=== PATIENT | male | born 1950 | race Caucasian/White ===

== ENCOUNTER 2017-05-23 16:22 | Inpatient (IN) ==
--- NOTE | 2017-05-23 16:45 | Emergency Department Note ---
Disposition Clinical Impression: Pancreatitis Qualifiers: Chronicity: acute Pancreatitis type: unspecified pancreatitis type Acute pancreatitis complication: unspecified Qualified Code(s): K85.90 - Acute pancreatitis without necrosis or infection, unspecified Disposition: Admitted As Inpatient Condition: Undetermined Referrals: NO,PCP [Primary Care Provider] - Forms: Work/School Release, ED Satisfaction Letter Time of Disposition: 18:13 Abdominal Pain HPI - General Chief Complaint: ED Abdominal Pain Stated Complaint: abdominal pain Time Seen by Provider: 05/23/17 16:25 Source: patient Mode of arrival: EMS Limitations: no limitations Nursing Notes Reviewed: Yes Vital Signs Reviewed: Yes - History of Present Illness HPI Narrative: 66-year-old male with history of noncompliance with hypertension, arrives [facility] emergency Department as a transfer from the [facility] with concern for pancreatitis. The patient states that this morning he began complaining of epigastric and periumbilical pain. The patient has associated nausea. The patient states he went to the [facility] urgent care with complaint of the epigastric pain today. The patient had a workup in the [facility] urgent care including a CBC, CMP with lipase and amylase. Labs demonstrated a leukocytosis of 14.4. Transaminases were within normal limits. Bilirubin was within normal limits. Lipase was greater than 3000. The patient admits to a moderate amount of nausea as well. He is otherwise resting comfortably on the cot upon transfer to [facility] for further workup. GFR is greater than 60 on labs from [facility]. Pt Subjective Complaint: abdominal pain Consistency: constant Location: periumbilical Pain Severity: severe Pain Scale: 9 Quality: stabbing Radiation: LUQ Migration to: no migration Improves with: nothing Worsens with: nothing Context: history of similar episodes Associated symptoms: Reports: nausea - Related Data Previous Rx's Medication Instructions Recorded diazePAM [Valium] 5 mg PO BID PRN 7 Days 11/30/16 Allergies Allergy/AdvReac Type Severity Reaction Status Date / Time morphine Allergy Rash Verified 11/30/16 14:27 propoxyphene [From Darvon] Allergy Rash Verified 11/30/16 14:27 All systems ED: reviewed and negative except as stated. Constitutional: Denies: fever, chills, weakness, weight change Cardiovascular: Denies: chest pain, palpitations, dyspnea on exertion, edema, syncope Respiratory: Denies: cough, dyspnea, wheezes, hemoptysis, stridor Gastrointestinal: Reports: abdominal pain, nausea. Denies: vomiting, diarrhea, constipation, hematemesis, melena, hematochezia Genitourinary: Denies: urgency, dysuria, frequency, hematuria Musculoskeletal: Denies: back pain, neck pain, arthralgia, myalgia Integumentary: Denies: rash, abrasion, lesions Neurological: Denies: headache, weakness, numbness, paresthesias, confusion, abnormal gait, vertigo Abdominal Pain PMH - Past Medical History Medical history: Reports: hypertension, other (Questionable history of pancreatitis) Male Surgical History: Reports: other Psychiatric history: Reports: PTSD - Social History Smoking status: Former smoker Alcohol use: Reports: none Drug use: Reports: none Physical Exam - General Limitations: no limitations General appearance: alert, in no apparent distress - Head Head exam: atraumatic, normocephalic, normal inspection - Neck Neck exam: Present: normal inspection, full ROM, trachea midline - Chest Chest inspection: Present: normal inspection, symmetric chest wall rise - Respiratory Respiratory exam: Present: normal lung sounds bilaterally - Cardiovascular Cardiovascular exam: Present: regular rate, normal rhythm, normal heart sounds - Abdominal Exam Abdominal exam: Present: soft, tenderness (Periumbilical and LUQ pain). Absent : distention, guarding, rebound, rigidity, Flores's sign, Rovsing's sign, tenderness at McBurney's Point, hernia - Extremities Exam Extremities exam: Present: normal inspection, full ROM. Absent: tenderness, pedal edema - Neurological Exam Neurological exam: Present: alert, oriented X3 Course Vital Signs Temperature 98.6 F 05/23/17 16:23 Pulse Rate 104 05/23/17 16:23 Respiratory Rate 16 05/23/17 16:23 Blood Pressure 156/97 05/23/17 16:23 O2 Sat by Pulse Oximetry 96 05/23/17 16:23 Temperature 98.6 F 05/23/17 16:23 Pulse Rate 104 05/23/17 16:23 Respiratory Rate 16 05/23/17 16:23 Blood Pressure 156/97 05/23/17 16:23 O2 Sat by Pulse Oximetry 96 05/23/17 16:23 Oxygen Delivery Oxygen Delivery Room Air Abdominal Pain - MDM Narrative Medical decision making narrative: Workup at the [facility] as well as the emergency department here today demonstrates acute pancreatitis. The patient has a lipase of greater than 3000. The patient has peritonitis noted on CT scan without pseudocyst. The patient is resting comfortably with IV fluids, IV Zofran, IV Dilaudid. We will admit the patient to the hospital for further workup. There is a concern as the patient states that he has had pancreatic Marvin the past but is unsure if they perform any workup. The patient denies any alcohol abuse and there is concern for possible stone or biliary associated pancreatitis. The patient denies any fevers or chills. He is resting comfortably on the cot at this time. The patient was accepted to the hospital service by MAITE Barrow. - Lab Data Lab results reviewed: Yes I reviewed the patient's lab results. Lab Results 05/23/17 Range/Units 16:38 Urine Color Yellow (Yellow) Urine Clarity Clear (Clear) Urine pH 6.0 (5.0-8.0) pH Units Ur Specific [place] 1.013 (1.010-1.025) Urine Protein 30 H (Neg-Trace) mg/dL Urine Glucose (UA) Normal (Normal) mg/dL Urine Ketones Negative (Negative) mg/dL Urine Blood Negative (Negative) Urine Nitrite Negative (Negative) Urine Bilirubin Negative (Negative) Urine Urobilinogen Normal (Normal) mg/dL Ur Leukocyte Esterase Negative (Negative) Urine Microscopic RBC 0-3 (0-3) per hpf Urine Microscopic WBC 0-3 (0-3) per hpf Ur Squamous Epith Cells Few (None-Few) per lpf Urine Bacteria None Seen (None-Few) per hpf Hyaline Casts None Seen (None-Few) per lpf Ur Culture Indicated? NO (NO) - Radiology Data Radiology results reviewed: Yes I reviewed the patient's radiology results. Abdomen/Pelvis CT 05/23/17 16:42 IMPRESSION: Mild acute pancreatitis without focal pseudocyst or abscess identified D/ / Morgan Rhodes MD / Morgan Rhodes MD Interpreting Provider: Morgan Rhodes MD Attestation Statement - Attestation Attestation: I personally interviewed and examined this patient and my medical decision- making was reviewed with the ED Resident Physician, Dr. Marroquin I agree with the documented findings, disposition and treatment plan as described except to the extent set forth below. Patient is a 66-year-old white male with a history of prior pancreatitis who presents to the emergency department sent by the [facility] with recurrent pancreatitis. Patient has been having complaints of epigastric pain that radiates through to his back associated with some nausea and was evaluated at the [facility] earlier today. He was sent here with an elevated lipase of 3000 mild elevation in his white count and sent for evaluation of this. Patient is hemodynamically stable on arrival and in no acute distress no alteration of consciousness. Patient denies any history of alcohol use or abuse , no history of gallbladder disease, and no history of elevated triglycerides. I agree with patient's physical exam findings as documented. We did not repeat patient's labs as the [facility] had just done labs prior to arrival and we will transfer those 2 the admitting physician. We did obtain CT imaging to rule out pseudocyst or abscess or any other abdominal pathology. Patient's CT shows mild acute pancreatitis but no pseudocyst or abscess. Remainder of CT scan was unremarkable. We initiated IV fluids, pain meds and antiemetics and will admit the patient for acute pancreatitis. Patient remains hemodynamically stable at this time.
[2017-05-23 16:47] LABS: Bilirubin,Urine Negative (Negative); Blood,Urine Negative (Negative); Clarity,Urine Clear (Clear); Color,Urine Yellow (Yellow); Glucose,Urine (UA) Normal (Normal); Ketones,Urine Negative (Negative); Leukocyte Esterase,Urine Negative (Negative); Nitrite,Urine Negative (Negative); Protein,Urine 30 mg/dL (Neg-Trace); Specific Gravity,Urine 1.013 (1.010-1.025); Urobilinogen,Urine Normal (Normal)
[2017-05-23 16:48] LABS: Bacteria,Urine None Seen per hpf (None-Few); Hyaline Casts,Urine None Seen per lpf (None-Few); RBC,Urine 0-3 per hpf (0-3); Squamous Epithelial Cell,Urine Few per lpf (None-Few); WBC,Urine 0-3 per hpf (0-3)
[2017-05-23] MEDS ORDERED: 0.9 % Sodium Chloride 1,000 ML IVC ONE (17:51)
[2017-05-23] MEDS ORDERED: *HR* HYDROmorphone (PF) 1 MG/ML SYRINGE IVP ONE (17:56)
[2017-05-23] MEDS ORDERED: Ondansetron 4 MG/2 ML VIAL IVP ONE (17:57)
[2017-05-23] MEDS ORDERED: 0.9 % Sodium Chloride 1,000 ML IVC SCH (18:00)
[2017-05-23] MEDS ORDERED: *HR* Promethazine 25 MG/ML VIAL IVP PRN (19:57)
[2017-05-23] MEDS ORDERED: Ondansetron 4 MG/2 ML VIAL IVP PRN (19:57)
[2017-05-23] MEDS ORDERED: Naloxone 0.4 MG/ML INJ IVP PRN (19:57)
--- NOTE | 2017-05-23 20:19 | Internal Med History&Physical ---
Date of Encounter: 05/23/17 Time of Encounter: 20:06 Assessment and Plan (1) Pancreatitis Current visit: Yes Status: Acute Patient reports severe abdominal pain, nausea and vomiting starting when he woke up this morning. Lipase > 3,000, Amylase < 1,300, WBC 14.4. CT abd/ pelvis shows mild acute pancreatitis without focal pseudocyst or abscess. Patient reports he quit drinking alcohol 20 years ago. 1L fluid bolus given in ED. Continue with 0.9NS at 150mL/hr NPO except ice chips dilaudid IVP PRN for abdominal pain. zofran and phenergan PRN for nausea and vomiting. Consult to GI to consider MRCP. Qualifiers: Chronicity: acute Pancreatitis type: unspecified pancreatitis type Acute pancreatitis complication: unspecified Qualified Code(s): K85.90 - Acute pancreatitis without necrosis or infection, unspecified (2) Nausea & vomiting Current visit: Yes Status: Acute Secondary to pancreatitis. NPO except ice chips zofran and phenergan PRN for nausea. Qualifiers: Vomiting type: bilious vomiting Qualified Code(s): R11.14 - Bilious vomiting (3) Abdominal pain Current visit: Yes Status: Acute secondary to pancreatitis Dilaudid PRN for pain Narcan PRN for respiratory depression Qualifiers: Abdominal location: generalized Qualified Code(s): R10.84 - Generalized abdominal pain (4) MAVERICK (acute kidney injury) Current visit: Yes Status: Suspected Patient with creatinine of 1.24, unknown baseline. Patient denies any history of kidney problems. Suspect acute secondary to vomiting and poor oral intake. Hydrating with fluids 0.9NS at 150mL/hr and will recheck chemistry in the morning. (5) DVT prophylaxis Current visit: Yes Status: Acute anti-embolic stockings heparin 5,000u SQ TID Internal Medicine - H&P: HPI Chief complaint: abdominal pain Admitted From: Emergency Dept Plans for Post Hospital Care: Home History of present illness: Mr. Delgadillo is a 66 year old male with hypertension, peripheral vascular disease acid reflux who presented to the [place] urgent care today with complaints of abdominal pain and nausea and vomiting, he was found to have elevated lipase and amylase and was transferred to [place] [facility] for acute pancreatitis. Patient reports that when he woke up this morning around 7 AM he had severe abdominal pain that was sharp, and unrelieved. He also had nausea and vomiting, nonbloody nonbilious. He denies any lightheadedness, headache, chest pain, palpitations, shortness of breath, diarrhea, fever, chills or sweats. Evaluation at the [place] included lab work that revealed elevated white blood cell count of 14.4, elevated lipase of greater than 3000, elevated amylase of greater than 1300, and elevated creatinine of 1.24. We do not have patient's baseline creatinine so unclear whether this is an AKA versus chronic. CT of the abdomen and pelvis obtained here showed mild acute pancreatitis without pseudocyst or abscess. Patient reports he quit drinking alcohol 20 years ago. On exam, patient alert and oriented, in no acute distress. Heart is regular rate and rhythm, lungs are clear bilaterally to auscultation. Abdomen is diffusely tender to palpation. Past Med Surg Social Fam HX - Past Medical History Medical history: GERD, hypertension, peripheral artery disease, other ( Questionable history of pancreatitis) Psychiatric history: PTSD - Past Surgical History Surgical History: LE stent(s), LE vascular intervention - Social History Smoking Status: Former smoker (50 pack year history) Smokeless Tobacco Status: No Alcohol use: none Drug use: none - Family History Mother Living Status: Age at : 98 Cause of : [place] Father Living Status: Age at : 56 Cause of : lung cancer Brother Living Status: Cause of : Colon cancer Internal Medicine - H&P: Meds Atorvastatin [Lipitor] 40 mg PO HS 05/23/17 [History] Clopidogrel [Plavix] 75 mg PO DAILY 05/23/17 [History] Gabapentin [Neurontin] 200 mg PO TID 05/23/17 [History] Omeprazole [PriLOSEC] 20 mg PO DAILY 05/23/17 [History] Sildenafil Citrate [Viagra] 50 mg PO DAILY PRN 05/23/17 [History] Allergies morphine Allergy (Verified 11/30/16 14:27) Rash propoxyphene [From Darvon] Allergy (Verified 11/30/16 14:27) Rash All Systems PM: A 10-system review of systems was performed and is negative for pertinent findings except as documented above in the HPI. - Constitutional Constitutional: no chills, no fever(s), no night sweats - EENT Eyes: no change in vision, no discharge, no pain, no photophobia Ears: no ear discharge, no ear pain, no tinnitus Nose, mouth and throat: no dysphagia, no nasal discharge, no neck pain, no sore throat - Cardiovascular Cardiovascular ROS IM: no chest pain, no diaphoresis, no dyspnea, no lightheadedness, no palpitations, no syncope - Respiratory Respiratory: no cough, no dyspnea, no wheezing, no excessive phlegm production - Gastrointestinal Gastrointestinal: abdominal pain, nausea, vomiting, no diarrhea, no hematemesis , no hematochezia, no melena - Musculoskeletal Musculoskeletal ROS IM: no numbness, no tingling - Integumentary Integumentary IM: no rash, no unusual bruising - Neurological Neurological ROS: no confusion, no convulsions, no focal weakness, no numbness, no tingling, no tremor(s) - Hematologic/Lymphatic Hematologic/Lymphatic: no easy bruising - Constitutional Vitals: Temp Pulse Resp BP Pulse Ox 98.6 F 88 16 130/91 95 05/23/17 16:23 05/23/17 18:40 05/23/17 18:54 05/23/17 18:54 05/23/17 18:40 General appearance: Present: A&O X 3, pleasant, no acute distress - Head Head exam: Present: atraumatic, normocephalic - Eye Eye exam: Present: PERRL, conjuntiva pink, sclera anicteric Pupils: Present: PERRL - Neck Neck exam general surgery: Present: supple, trachea midline. Absent: lymphadenopathy - Respiratory Respiratory exam: Present: CTAB. Absent: accessory muscle use, rales, rhonchi, wheezes - Cardiovascular Cardiovascular exam: Present: RRR, +S1, +S2. Absent: diastolic murmur, gallop, rubs, systolic murmur - GI/Abdominal GI/Abdominal exam: Present: normal bowel sounds, soft, tenderness, no peritoneal signs. Absent: distended - Extremities Exam Extremities exam: Present: warm, radial pulses palpable and symetrical. Absent : calf tenderness, cyanotic, pedal edema - Neurological Exam Neurological exam: Present: CN II-XII intact, oriented X3, no focal deficits. Absent: pronater drift, facial droop, speech deficit - Skin Skin exam: Present: dry, intact Internal Med - H&P Results - Labs Labs: Labs from [place]: Hgb 14.9 Hct 46.0 WBC 14.4 Plt 206 Na 141 K 4.3 Cl 104 CO2 27 BUN 11 Cr 1.24 Glu 119 AST 21 ALT 20 tbili 0.2 alk phos 129 lipase > 3,000 Amylase > 1,300 - Diagnostic Studies CT scan - abdomen Additional comments: Abdomen/Pelvis CT 05/23/17 16:42 IMPRESSION: Mild acute pancreatitis without focal pseudocyst or abscess identified D/ / Morgan Rhodes MD / Morgan Rhodes MD Interpreting Provider: Morgan Rhodes MD
[2017-05-23] MEDS: Pantoprazole 40 MG VIAL IVP SCH (21:39)
[2017-05-23] MEDS: 0.9 % Sodium Chloride 1,000 ML IVC SCH (21:39)
[2017-05-23] MEDS: *HR* HYDROmorphone (PF) 1 MG/ML SYRINGE IVP PRN (21:40)
[2017-05-23] MEDS: *HR* Heparin 5,000 UNIT/ML VIAL SQ SCH (23:43)
[2017-05-24] MEDS: *HR* HYDROmorphone (PF) 1 MG/ML SYRINGE IVP PRN ×4 (02:39→15:17)
[2017-05-24] MEDS ORDERED: Acetaminophen 325 MG TABLET PO ONE (03:29)
[2017-05-24] MEDS: 0.9 % Sodium Chloride 1,000 ML IVC SCH ×4 (04:03→19:20)
[2017-05-24 06:36] LABS: Basophils % 0.2 %; Eosinophils # 0.1 K/mcL (0.0-0.6); Eosinophils % 0.5 %; Hematocrit 38.4 % (37.5-50.1); Hemoglobin 12.5 g/dL (12.9-16.9); Immature Granulocytes % 0.3 % (0-4); Lymphocytes % 21.1 %; Mean Corpuscular HGB Conc 32.6 g/dL (31.6-35.5); Mean Corpuscular Hemoglobin 28.2 pg (28.0-33.3); Mean Corpuscular Volume 86.7 fL (83.0-100.0); Mean Platelet Volume 11.4 fL (9.4-12.4); Monocytes # 0.8 K/mcL (0.0-1.3); Monocytes % 8.7 %; Neutrophils # 6.4 K/mcL (1.6-8.9); Platelet Count 206 K/mcL (140-400); Red Blood Count 4.43 M/mcL (4.19-5.50); Red Cell Distribution Width 14.2 % (11.5-14.5); Segmented Neutrophils % 69.2 %
[2017-05-24 06:48] LABS: BUN/Creatinine Ratio 10 (6-26); Blood Urea Nitrogen 9 mg/dL (8-26); Calcium 8.5 mg/dL (8.6-10.8); Carbon Dioxide 25 mEq/L (19-29); Chloride 107 mEq/L (98-109); Glucose 112 mg/dL (70-99); Osmolality,Calculated 287 (280-300); Potassium 4.1 mEq/L (3.5-4.5); Sodium 139 mEq/L (136-145); eGFR For African Americans > 60 (> 60); eGFR For Non-African Americans > 60 (> 60)
[2017-05-24] MEDS: *HR* Heparin 5,000 UNIT/ML VIAL SQ SCH ×2 (08:07→15:58)
[2017-05-24] MEDS: Pantoprazole 40 MG VIAL IVP SCH (08:07)
[2017-05-24 08:42] LABS: Amylase 2853 Units/L (25-125); Lipase 957 Units/L (8-78)
[2017-05-24] MEDS ORDERED: Pantoprazole 40 MG VIAL IVP SCH (09:00)
--- NOTE | 2017-05-24 09:12 | Internal Med Progress Note ---
Date of Encounter: 05/24/17 Time of Encounter: 09:10 - Assessment and plan (1) Pancreatitis Current Visit: Yes Status: Acute Assessment and plan: Recurrent pancreatitis, uncertain etiology. Last episode about 8 months back, hospitalized at a different facility. No alcohol use. Continue supportive care with bowel rest, IV hydration, pain control with when necessary IV morphine and when necessary antiemetics. We will obtain right upper quadrant ultrasound and MRCP to evaluate biliary etiology. GI consult. Qualifiers: Chronicity: acute Pancreatitis type: unspecified pancreatitis type Acute pancreatitis complication: unspecified Qualified Code(s): K85.90 - Acute pancreatitis without necrosis or infection, unspecified (2) GERD (gastroesophageal reflux disease) Current Visit: Yes Status: Chronic Assessment and plan: Continue PPI. Qualifiers: Esophagitis presence: esophagitis presence not specified Qualified Code(s) : K21.9 - Gastro-esophageal reflux disease without esophagitis (3) PVD (peripheral vascular disease) Current Visit: Yes Status: Chronic Assessment and plan: Noted to be on aspirin and Plavix. Will hold for now for possible need for GI procedures. - Subjective Interval history: Reports improvement in nausea and abdominal pain with medications; no fever/ chills; - Constitutional Vitals: Temp Pulse Resp BP Pulse Ox 98.1 F 79 16 136/79 96 05/24/17 08:01 05/24/17 08:01 05/24/17 08:01 05/24/17 08:01 05/24/17 08:01 General appearance: Present: A&O X 3, answers questions appropriately - Respiratory Respiratory exam: Present: CTAB. Absent: accessory muscle use, rales, rhonchi, wheezes - Cardiovascular Cardiovascular exam: Present: RRR, +S1, +S2. Absent: diastolic murmur, gallop, rubs, systolic murmur - GI/Abdominal GI/Abdominal exam: Present: normal bowel sounds, soft (epigastric and RUQ tenderness), no peritoneal signs. Absent: distended, tenderness - Extremities Exam Extremities exam: Present: full ROM, warm, radial pulses palpable and symetrical. Absent: calf tenderness, cyanotic, pedal edema - Neurological Exam Neurological exam: Present: CN II-XII intact, oriented X3, no focal deficits. Absent: pronater drift, facial droop, speech deficit Internal Medicine: Result - Labs CBC & Chem 7: 05/24/17 06:14 05/24/17 06:14 Labs: Short CBC 05/24/17 Range/Units 06:14 WBC 9.2 (4.3-11.1) K/mcL Hgb 12.5 L (12.9-16.9) g/dL Hct 38.4 (37.5-50.1) % Plt Count 206 (140-400) K/mcL Neutrophils # 6.4 (1.6-8.9) K/mcL BMP 05/24/17 06:14 Sodium 139 Potassium 4.1 Chloride 107 Carbon Dioxide 25 BUN 9 Creatinine 0.94 Glucose 112 H Calcium 8.5 L Consult Discharge Plan - Plan Referrals: [facility] [Outside]
[2017-05-24 10:34] LABS: Ionized Calcium 1.14 mmol/L (1.15-1.35)
[2017-05-24 11:25] LABS: Albumin 3.2 g/dL (3.5-5.0); Albumin/Globulin Ratio 1.1 (1.1-2.2); Bilirubin,Direct 0.2 mg/dL (0.0-0.5); Bilirubin,Indirect 0.3 mg/dL (0.0-1.2); Bilirubin,Total 0.5 mg/dL (0.2-1.2); Globulin 2.9 g/dL (2.4-3.5); Total Protein 6.1 g/dL (6.0-8.3)
[2017-05-24] MEDS ORDERED: 0.9 % Sodium Chloride 1,000 ML IVC SCH (14:01)
--- NOTE | 2017-05-24 14:11 | Gastroenterology Consult Note ---
<Shakir Wilson Roberto - Last Filed: 05/24/17 14:09> Date of Encounter: 05/24/17 Time of Encounter: 11:35 - Assessment and plan (1) Pancreatitis Current Visit: Yes Status: Acute Assessment and plan: Lipase at [facility] was greater than 3000, lipase on admission here 957. LFTs are normal. CT A/P showed mild acute pancreatitis without pseudocyst or abscess. Gallbladder ultrasound with questionable echogenic focus along the gallbladder wall, which could represent unenhanced stone or perhaps a small polyp. Increase IV fluids to 200 ml/hr. Continue pain control and antiemetics. Keep NPO for now. Check RADHA, IgG 4, ionized calcium, and triglycerides. Qualifiers: Chronicity: acute Pancreatitis type: unspecified pancreatitis type Acute pancreatitis complication: unspecified Qualified Code(s): K85.90 - Acute pancreatitis without necrosis or infection, unspecified (2) Nausea & vomiting Current Visit: Yes Status: Acute Assessment and plan: Secondary to pancreatitis. Continue antiemetics. Qualifiers: Vomiting type: bilious vomiting Qualified Code(s): R11.14 - Bilious vomiting (3) Abdominal pain Current Visit: Yes Status: Acute Assessment and plan: Secondary to pancreatitis. Continue pain control. Qualifiers: Abdominal location: generalized Qualified Code(s): R10.84 - Generalized abdominal pain - Time Spent With Patient Total time spent is greater than 50% in coordination of care (as documented) at patient's floor/unit and/or counseling patient: GI History of Present Illness - Data of Consult Patient: new to practice Consult date: 05/24/17 Requesting Physician: Liz Diggs MD - Consult Narrative Reason for consult: Pancreatitis History of present illness: Mr. Delgadillo is a 66 year old male with PMHx of GERD, HTN, PAD, GERD who presented to the [facility] with c/o abdominal pain, nausea, and vomiting. He was found to have elevated amylase and lipase and was transferred to [place] for acute pancreatitis. He denies fever, chills, chest pain, shortness of breath , or diarrhea. Labs at the [facility] showed WBC 14.4, amylase greater than 1300. and lipase greater than 3000. CT A/P showed mild acute pancreatitis without pseudocyst or abscess. Patient reports he quit drinking alcohol 20 years ago. Procedures: None NSAIDs: None Anticoagulation: Plavix Past Med Surg Social Fam HX - Past Medical History Medical history: hypertension, other Psychiatric history: PTSD - Past Surgical History Surgical History: LE stent(s), LE vascular intervention - Social History Smoking Status: Former smoker Smokeless Tobacco Status: No Alcohol use: none Drug use: none - Family History Mother Living Status: Age at : 98 Cause of : [place] Father Living Status: Age at : 56 Cause of : lung cancer Brother Adopted: [place]: Karl arvizu Family Member Ethnicity: Non- Living Status: Still Living Cause of : Colon cancer Hx Family Cardiac Disorders: Yes (HTN) - Gastrointestinal Gastrointestinal: Present: as per HPI - Constitutional Constitutional: as per HPI - EENT Eyes: as per HPI Ears: Present: as per HPI Nose, mouth and throat: Present: as per HPI - Cardiovascular Cardiovascular ROS: Present: as per HPI - Respiratory Respiratory IM: Present: as per HPI - Genitourinary Genitourinary: Absent: change in color, Urinary frequency - Neurological ROS Neurological GI: Present: as per HPI - Hematologic/Lymphatic Hematologic/Lymphatic pediatric: Present: as per HPI - Musculoskeletal Musculoskeletal ROS GI: Present: as per HPI - Integumentary Integumentary GI: Present: as per HPI - Psychiatric ROS Psychiatric GI: Present: as per HPI - Endocrine Endocrine IM: Present: as per HPI - Constitutional Vitals: Temp Pulse Resp BP Pulse Ox 98.2 F 82 18 143/87 95 05/24/17 11:53 05/24/17 11:53 05/24/17 11:53 05/24/17 11:53 05/24/17 11:53 General appearance: Present: cooperative, A&O X 3, no acute distress, answers questions appropriately - Head Head exam: Present: atraumatic, normocephalic - Eye Eye exam: Present: normal appearance, sclera anicteric - ENT ENT exam: Present: mucous membranes dry - Neck Neck exam general surgery: Present: normal inspection, trachea midline - Respiratory Respiratory exam: Present: CTAB. Absent: rales, rhonchi - Cardiovascular Cardiovascular exam: Present: RRR, +S1, +S2 - GI/Abdominal GI/Abdominal exam: Present: soft, tenderness (RUQ and epigastric), no peritoneal signs. Absent: distended, firm, guarding - Rectal Rectal exam: Present: deferred - Extremities Exam Extremities exam: Present: warm - Neurological Exam Neurological exam: Present: no focal deficits - Psychiatric Psychiatric exam: Present: normal affect, normal mood - Skin Skin exam: Present: dry, intact, normal color, warm Results - Labs CBC & Chem 7: 05/24/17 06:14 05/24/17 06:14 Labs: Last Result Calcium 8.5 mg/dL (8.6-10.8) L 05/24/17 06:14 Triglycerides 150 mg/dL (< 150) H 05/24/17 10:00 Entire Visit Hgb 12.5 g/dL (12.9-16.9) L 05/24/17 06:14 Hct 38.4 % (37.5-50.1) 05/24/17 06:14 Total Bilirubin 0.5 mg/dL (0.2-1.2) 05/24/17 10:00 AST 13 Units/L (5-34) 05/24/17 10:00 ALT 7 Units/L (0-55) 05/24/17 10:00 Amylase 2853 Units/L (25-125) H 05/24/17 06:14 Lipase 957 Units/L (8-78) H 05/24/17 06:14 - Impressions Impressions Abdomen Ultrasound 05/24/17 10:30 IMPRESSION: 1. The pancreas was not well visualized. 2. Questionable echogenic focus along the gallbladder wall, which could represent unenhanced stone or perhaps a small polyp. D/ / Alfredito Cardoza MD / Alfredito Cardoza MD Interpreting Provider: Alfredito Cardoza MD Consult Discharge Plan - Plan Referrals: [facility] [Outside] - 06/06/17 9:00 am <Ferny Pastrana - Last Filed: 05/24/17 18:38> Date of Encounter: 05/24/17 Time of Encounter: 17:30 - Time Spent With Patient Total time spent is greater than 50% in coordination of care (as documented) at patient's floor/unit and/or counseling patient: GI History of Present Illness - Data of Consult Requesting Physician: Liz Diggs MD - Consult Narrative History of present illness: Mr. Delgadillo is a 66 year old male - Constitutional Vitals: Temp Pulse Resp BP Pulse Ox 98.7 F 97 16 156/93 94 05/24/17 15:10 05/24/17 15:10 05/24/17 15:10 05/24/17 15:10 05/24/17 15:10 Results - Labs CBC & Chem 7: 05/24/17 06:14 05/24/17 06:14 Labs: Last Result Calcium 8.5 mg/dL (8.6-10.8) L 05/24/17 06:14 Triglycerides 150 mg/dL (< 150) H 05/24/17 10:00 Entire Visit Hgb 12.5 g/dL (12.9-16.9) L 05/24/17 06:14 Hct 38.4 % (37.5-50.1) 05/24/17 06:14 Total Bilirubin 0.5 mg/dL (0.2-1.2) 05/24/17 10:00 AST 13 Units/L (5-34) 05/24/17 10:00 ALT 7 Units/L (0-55) 05/24/17 10:00 Amylase 2853 Units/L (25-125) H 05/24/17 06:14 Lipase 957 Units/L (8-78) H 05/24/17 06:14 - Impressions Impressions Abdomen Ultrasound 05/24/17 10:30 IMPRESSION: 1. The pancreas was not well visualized. 2. Questionable echogenic focus along the gallbladder wall, which could represent unenhanced stone or perhaps a small polyp. D/ / Alfredito Cardoza MD / Alfredito Cardoza MD Interpreting Provider: Alfredito Cardoza MD - Attending Attestation I examined this patient and my medical decision-making was reviewed with the UNIT TECHNICIAN/PA/Advanced Practice Nurse/Resident Physician. I agree with the documented findings, disposition and treatment plan as described except to the extent set forth below.
[2017-05-24] MEDS: Acetaminophen 325 MG TABLET PO PRN (19:16)
[2017-05-24] MEDS: *HR* HYDROcodone/Acet 5/325 mg TABLET PO PRN (20:54)
[2017-05-25] MEDS: *HR* Heparin 5,000 UNIT/ML VIAL SQ SCH ×3 (00:09→17:15)
[2017-05-25] MEDS: *HR* HYDROmorphone (PF) 1 MG/ML SYRINGE IVP PRN ×2 (00:16→07:38)
[2017-05-25] MEDS: 0.9 % Sodium Chloride 1,000 ML IVC SCH ×3 (03:15→14:51)
[2017-05-25] MEDS: *HR* HYDROcodone/Acet 5/325 mg TABLET PO PRN ×2 (03:21→11:37)
[2017-05-25 05:23] LABS: Basophils # 0.1 K/mcL (0.0-0.2); Basophils % 0.5 %; Eosinophils # 0.1 K/mcL (0.0-0.6); Eosinophils % 1.5 %; Hematocrit 37.2 % (37.5-50.1); Hemoglobin 12.2 g/dL (12.9-16.9); Immature Granulocytes % 0.4 % (0-4); Lymphocytes # 1.6 K/mcL (0.6-4.6); Mean Corpuscular HGB Conc 32.8 g/dL (31.6-35.5); Mean Corpuscular Volume 88.6 fL (83.0-100.0); Mean Platelet Volume 11.7 fL (9.4-12.4); Monocytes # 0.9 K/mcL (0.0-1.3); Monocytes % 9.3 %; Neutrophils # 6.6 K/mcL (1.6-8.9); Platelet Count 176 K/mcL (140-400); Red Cell Distribution Width 14.2 % (11.5-14.5); Segmented Neutrophils % 71.3 %
[2017-05-25 05:39] LABS: Alanine Aminotransferase 8 Units/L (0-55); Albumin 3.2 g/dL (3.5-5.0); Alkaline Phosphatase 90 Units/L (38-126); Aspartate Amino Transferase 14 Units/L (5-34); BUN/Creatinine Ratio 9 (6-26); Blood Urea Nitrogen 9 mg/dL (8-26); Calcium 8.7 mg/dL (8.6-10.8); Carbon Dioxide 25 mEq/L (19-29); Chloride 105 mEq/L (98-109); Globulin 3.1 g/dL (2.4-3.5); Glucose 83 mg/dL (70-99); Lipase 170 Units/L (8-78); Osmolality,Calculated 288 (280-300); Potassium 3.9 mEq/L (3.5-4.5); Sodium 140 mEq/L (136-145); Total Protein 6.3 g/dL (6.0-8.3); eGFR For African Americans > 60 (> 60); eGFR For Non-African Americans > 60 (> 60)
[2017-05-25 05:41] LABS: Bilirubin,Total 0.8 mg/dL (0.2-1.2)
[2017-05-25] MEDS: Pantoprazole 40 MG VIAL IVP SCH (08:35)
[2017-05-25] MEDS: Acetaminophen 325 MG TABLET PO PRN ×2 (11:33→17:54)
[2017-05-25] MEDS: Aspirin Enteric Coated 81 MG Tablet PO SCH (12:33)
--- NOTE | 2017-05-25 17:41 | Internal Med Progress Note ---
Date of Encounter: 05/25/17 Time of Encounter: 10:45 - Assessment and plan (1) Pancreatitis Current Visit: Yes Status: Acute Assessment and plan: Recurrent pancreatitis, uncertain etiology. Abdominal ultrasound shows no evidence of cholecystitis, small echogenic focus in the wall of gallbladder possibly polyp or unenhanced stone. MRCP shows no evidence of biliary dilation/ obstruction but shows changes suggestive of mild acute pancreatitis along with 5 mm cystic changes in head of pancreas, possibly pseudocysts. Continue supportive care with IV hydration, pain control with when necessary IV morphine and when necessary antiemetics. Start clear liquid diet and advance as tolerated. GI consult noted. Qualifiers: Chronicity: acute Pancreatitis type: unspecified pancreatitis type Acute pancreatitis complication: unspecified Qualified Code(s): K85.90 - Acute pancreatitis without necrosis or infection, unspecified (2) GERD (gastroesophageal reflux disease) Current Visit: Yes Status: Chronic Assessment and plan: Continue PPI. Qualifiers: Esophagitis presence: esophagitis presence not specified Qualified Code(s) : K21.9 - Gastro-esophageal reflux disease without esophagitis (3) PVD (peripheral vascular disease) Current Visit: Yes Status: Chronic Assessment and plan: Noted to be on aspirin and Plavix, resume. - Subjective Interval history: Patient reports terrible headache due to not eating anything. Request for Tylenol for headache. Reports improving epigastric abdominal pain. No nausea, vomiting, diarrhea. - Constitutional Vitals: Temp Pulse Resp BP Pulse Ox 98.3 F 90 18 142/80 96 05/25/17 14:28 05/25/17 14:28 05/25/17 14:28 05/25/17 14:28 05/25/17 14:28 General appearance: Present: A&O X 3, answers questions appropriately - Respiratory Respiratory exam: Present: CTAB. Absent: accessory muscle use, rales, rhonchi, wheezes - Cardiovascular Cardiovascular exam: Present: RRR, +S1, +S2. Absent: diastolic murmur, gallop, rubs, systolic murmur - GI/Abdominal GI/Abdominal exam: Present: normal bowel sounds, soft (Mild epigastric tenderness, improving), no peritoneal signs. Absent: distended, tenderness - Extremities Exam Extremities exam: Present: full ROM, warm, radial pulses palpable and symetrical. Absent: calf tenderness, cyanotic, pedal edema - Neurological Exam Neurological exam: Present: CN II-XII intact, oriented X3, no focal deficits. Absent: pronater drift, facial droop, speech deficit Internal Medicine: Result - Labs CBC & Chem 7: 05/25/17 04:13 05/25/17 04:13 Labs: Short CBC 05/25/17 Range/Units 04:13 WBC 9.2 (4.3-11.1) K/mcL Hgb 12.2 L (12.9-16.9) g/dL Hct 37.2 L (37.5-50.1) % Plt Count 176 (140-400) K/mcL Neutrophils # 6.6 (1.6-8.9) K/mcL BMP 05/25/17 04:13 Sodium 140 Potassium 3.9 Chloride 105 Carbon Dioxide 25 BUN 9 Creatinine 0.96 Glucose 83 Calcium 8.7 Liver Function 05/25/17 Range/Units 04:13 Total Bilirubin 0.8 D (0.2-1.2) mg/dL AST 14 (5-34) Units/L ALT 8 (0-55) Units/L Alkaline Phosphatase 90 (38-126) Units/L Albumin 3.2 L (3.5-5.0) g/dL - Impressions Impressions Abdomen MRI 05/24/17 14:38 IMPRESSION: 1. Findings compatible with mild pancreatitis. 2. Unremarkable gallbladder. No evidence of biliary ductal dilation or choledocholithiasis. 3. Two 0.5 cm cystic foci in the body of the pancreas. Diagnostic considerations include small pseudocysts or cystic pancreatic neoplasm. D/ / 05/25/2017 07:09:32 Abundio Alonzo MD / sandra Interpreting Provider: Abundio Alonzo MD Tibia/Fibula X-Ray 05/24/17 18:49 IMPRESSION: 1. No acute osseous abnormality. 2. Radiopaque foreign body as above projecting over the medial and posterior soft tissues at the level of the mid thigh. Findings have the appearance of a possible coin and may be external to the patient. Clinical correlation is recommended. Repeat radiograph of the thigh and may be obtained after removal as clinically indicated for further evaluation. No additional radiopaque foreign bodies are identified. D/ / Lex Ribeiro MD / Lex Ribeiro MD Interpreting Provider: Lex Ribeiro MD Consult Discharge Plan - Plan Referrals: [facility] [Outside] - 06/06/17 9:00 am
[2017-05-26] MEDS: *HR* Heparin 5,000 UNIT/ML VIAL SQ SCH ×3 (00:40→16:34)
[2017-05-26] MEDS: 0.9 % Sodium Chloride 1,000 ML IVC SCH ×2 (00:41→08:02)
[2017-05-26 07:25] LABS: Immunoglobulin G Subclass 4 39 mg/dL (1-123)
[2017-05-26] MEDS: Pantoprazole 40 MG VIAL IVP SCH (08:01)
[2017-05-26] MEDS: *HR* HYDROcodone/Acet 5/325 mg TABLET PO PRN (08:02)
[2017-05-26] MEDS: Aspirin Enteric Coated 81 MG Tablet PO SCH (08:02)
[2017-05-26] MEDS ORDERED: 0.9 % Sodium Chloride 1,000 ML IVC SCH (10:24)
[2017-05-26] MEDS ORDERED: *HR* HYDROmorphone (PF) 1 MG/ML SYRINGE IVP PRN (11:27)
[2017-05-26 11:42] VITALS: BP 182/105
--- NOTE | 2017-05-26 14:21 | Discharge Summary ---
Date of Encounter: 05/27/17 Time of Encounter: 11:15 - Discharge Diagnosis (1) Pancreatitis Priority: Primary Status: Acute Qualifiers: Chronicity: acute Pancreatitis type: unspecified pancreatitis type Acute pancreatitis complication: unspecified Qualified Code(s): K85.90 - Acute pancreatitis without necrosis or infection, unspecified (2) GERD (gastroesophageal reflux disease) Priority: Secondary Status: Chronic Qualifiers: Esophagitis presence: esophagitis presence not specified Qualified Code(s) : K21.9 - Gastro-esophageal reflux disease without esophagitis (3) PVD (peripheral vascular disease) Priority: Secondary Status: Chronic (4) Essential hypertension Priority: Secondary Status: Chronic - Discharge Medications Prescriptions: Metoprolol [Lopressor] 12.5 mg PO BID #60 tablet Home Medications: Atorvastatin [Lipitor] 40 mg PO HS 05/23/17 [History] Clopidogrel [Plavix] 75 mg PO DAILY 05/23/17 [History] Omeprazole [PriLOSEC] 20 mg PO DAILY 05/23/17 [History] Sildenafil Citrate [Viagra] 50 mg PO DAILY PRN 05/23/17 [History] Aspirin Enteric Coated [Aspirin EC] 81 mg PO DAILY 05/24/17 [History] Metoprolol [Lopressor] 12.5 mg PO BID #60 tablet 05/26/17 [Rx] Allergies/Adverse Reactions: Allergies morphine Allergy (Verified 11/30/16 14:27) Rash propoxyphene [From Darvon] Allergy (Verified 11/30/16 14:27) Rash Procedures/tests Complete & Pending: Procedures Performed prior 72 hours Category Date Time Status abdominal ultrasound - limited [US abdomen limited] [US Exams 05/24/17 10:30 Completed ] Stat MR abdomen wo con [MR] Routine MRI 05/24/17 14:38 Draft Date of admission: 05/23/17 18:22 Primary care physician: [facility] Consults: 05/23/17 21:21 Consult to Gastroenterology [CONS] Routine Consulting Provider: Perez Walsh Reason for Consult: 66M with acute pancreatitis, denies any alcohol in 20 years. Second episode in 1 year. Call Completed: No Discharging clinician: Liz Diggs Anticipated date of discharge: 05/26/17 - Patient Status Disposition: Home, Self-Care Condition: Good Functional capacity at discharge: independent ambulation Overall status at discharge: patient is progressing back to baseline - Discharge Instructions Instructions: Pancreatitis (DC), Chronic Hypertension (DC) Follow Up With: [facility] [Outside] - 06/06/17 9:00 am Additional Instructions: F/up with PCP at [place] in 1-2 weeks - Diet and Activity Activity: resume usual activities as tolerated Diet: low fat, low cholesterol, low salt diet Hospital course: Mr. Delgadillo is a 66 year old male admitted with abdominal pain, nausea and vomiting. He was noted to have significantly elevated serum amylase and lipase at admission. CT abdomen/pelvis showed changes suggestive of mild pancreatitis. He was managed medically with bowel rest, IV hydration, pain control with when necessary IV Dilaudid and when necessary antiemetics. GI was consulted and agree with current management. He was noted to have recurrent pancreatitis with no specific etiology. Lipid panel was within normal limits. Right upper quadrant ultrasound showed no evidence of cholecystitis, nonspecific echogenic focus in the wall of gallbladder, polyp versus unenhanced stone. MRCP abdomen was completed which showed mild pancreatitis with 2 cystic foci, possibly pseudocysts with no biliary obstruction/dilation. Patient was noted to have uncontrolled blood pressure during his hospitalization and was started on beta ken with improvement. He is currently able to tolerate oral soft diet with significant improvement in abdominal pain and nausea and is medically stable for discharge with outpatient follow-up. - Time Spent with Patient Total time spent providing and/or coordinating discharge services: Greater than 30 minutes (40 min) - Constitutional Vitals: Temp Pulse Resp BP Pulse Ox 98.0 F 74 18 182/105 99 05/26/17 11:41 05/26/17 11:41 05/26/17 11:41 05/26/17 11:41 05/26/17 11:41 General appearance: Present: A&O X 3, answers questions appropriately - GI/Abdominal GI/Abdominal exam: Present: normal bowel sounds, soft, no peritoneal signs. Absent: distended, tenderness
[2017-05-26 14:45] LABS: ANA IgG by ELISA NONE DETECTED (None Detected)
== END 2017-05-26 16:43 | disposition home or self-care (01) | DRG 438 ==
LOC: EMEROO 16:22 → 3ANU 18:22
PROVIDERS: ADMIT Nurse Practitioner Family; ATTEND Internal Medicine